=== PATIENT | female | born 2000 | race Caucasian/White ===

== ENCOUNTER 2018-08-06 19:43 | Inpatient (IN) | payer OTHER ==
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
[2018-08-06] MEDS ORDERED: ONDANSETRON 4 MG/2 ML VIAL ONE (22:01)
[2018-08-06] MEDS ORDERED: ONDANSETRON 4 MG/2 ML VIAL IVP ONE (22:04)
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
[2018-08-06] MEDS ORDERED: LR 1,000 ML IV SCH (22:30)
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
[2018-08-07] MEDS ORDERED: oxyCODONE IR 5 MG TAB PO PRN (08:07)
[2018-08-07] MEDS ORDERED: LORazepam 0.5 MG TAB PO PRN (08:09)
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
[2018-08-07] MEDS ORDERED: BISACODYL 10 MG SUPP PR PRN (10:26)
[2018-08-07] MEDS ORDERED: LACTULOSE 20 GM/30 ML UDCUP PO PRN (10:26)
[2018-08-07] MEDS ORDERED: MAGNESIUM HYDROXIDE 30 ML UDCUP PO PRN (10:26)
[2018-08-07] MEDS ORDERED: POLYETHYLENE GLYCOL 3350 17 GM PKT PO PRN (10:26)
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
[2018-08-07] MEDS: SENNOSIDES/DOCUSATE SODIUM TAB PO SCH (21:28)
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
[2018-08-08] MEDS: SENNOSIDES/DOCUSATE SODIUM TAB PO SCH ×2 (09:55→20:54)
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
[2018-08-08] MEDS: ACETAMINOPHEN 500 MG TAB PO PRN (21:00)
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
[2018-08-09] MEDS: SENNOSIDES/DOCUSATE SODIUM TAB PO SCH (09:12)
[2018-08-09] MEDS: ACETAMINOPHEN 500 MG TAB PO PRN (09:12)
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
[2018-08-09 13:54] VITALS: BP 118/58
== END 2018-08-09 13:58 | disposition home or self-care (01) | DRG 87 ==
LOC: EDUNIT# → F2N 22:41 → F3E 08-08 17:32
PROVIDERS: ADMIT Surgery; ATTEND Surgery
DX: S02.19XA Other fracture of base of skull, initial encounter for closed fracture (principal); S02.32XA Fracture of orbital floor, left side, initial encounter for closed fracture; S62.317A Displaced fracture of base of fifth metacarpal bone, left hand, initial encounter for closed fracture; S02.40EA Zygomatic fracture, right side, initial encounter for closed fracture; S02.40DA Maxillary fracture, left side, initial encounter for closed fracture; G93.89 Other specified disorders of brain; V13.0XXA Pedal cycle driver injured in collision with car, pick-up truck or van in nontraffic accident, initial encounter; Y92.414 Local residential or business street as the place of occurrence of the external cause; Y93.55 Activity, bike riding
CPT/HCPCS: 82435-PO; 82565-PO; 82947-PO; 84132-PO; 84295-PO; 84520-PO; 85014-PO; 92523-GN; 96374; 97116-GP; 97161-GP; 97165-GO; 97530-GO; 97535-GO; G0480; J2270; J2405